=== PATIENT | female | born 1995 | race Caucasian/White ===

== ENCOUNTER 2020-07-10 19:05 | Emergency (ER) | payer OTHER ==
[~2020-07-10] VITALS: Ht 160 cm; Wt 85.9 kg
--- NOTE | 2020-07-10 19:39 | PHYS DOC ---
General Adult EDM: Chief Complaint: SKIN PROBLEM HPI: HPI: Patient is a 24 year old female who presents with a skin rash over her bilateral legs, arms, and back. She states that this began 2 weeks ago. She denies any inciting factors, as well as change in medications, lotions, body washes, detergents, or new clothing. She states that she has had a similar rash like this when she was 5 years ago. She also states she has a discoloration under her arms and breasts. She states that this rash started on her bilateral legs and showed up on her arms after she waxed them. which she has done many times in the past. She states the rash on her back is initiated by pressure from her bra. She has tried OTC cortisone and RX triamcinolone without relief. She denies fevers, chill, shortness of breath, GI upset, but states she is having some dysuria. Review of Systems: Review of Systems: Constitutional: Denies fever or chills. [] Eyes: Denies change in visual acuity. [] HENT: Denies nasal congestion or sore throat. [] Respiratory: Denies cough or shortness of breath. [] Cardiovascular: Denies chest pain or edema. [] GI: Denies abdominal pain, nausea, vomiting, bloody stools or diarrhea. [] : positive dysuria. [] Musculoskeletal: Denies back pain or joint pain. [] Integument: positive rash. [] Neurologic: Denies headache, focal weakness or sensory changes. [] Endocrine: Denies polyuria or polydipsia. [] Lymphatic: Denies swollen glands. [] Psychiatric: Denies depression or anxiety. [] Heart Score: Risk Factors: Risk Factors: DM, Current or recent (<one month) smoker, HTN, HLP, family history of CAD, obesity. Risk Scores: Score 0 - 3: 2.5% MACE over next 6 weeks - Discharge Home Score 4 - 6: 20.3% MACE over next 6 weeks - Admit for Clinical Observation Score 7 - 10: 72.7% MACE over next 6 weeks - Early Invasive Strategies Allergies: Allergies: Allergies Coded Allergies Type Severity Reaction Last Updated Verified No Known Drug Allergies 07/10/20 No Physical Exam: PE: Constitutional: Well developed, well nourished, no acute distress, non-toxic appearance. [] HENT: Normocephalic, atraumatic, bilateral external ears normal, oropharynx moist, no oral exudates, nose normal. [] Eyes: PERRLA, EOMI, conjunctiva normal, no discharge. [] Neck: Normal range of motion, no tenderness, supple, no stridor. [] Cardiovascular:Heart rate regular rhythm, no murmur [] Lungs & Thorax: Bilateral breath sounds clear to auscultation [] Abdomen: Bowel sounds normal, soft, no tenderness, no masses, no pulsatile masses. [] Skin: Warm, dry, no erythema, positive rash forearms, armpits and upper abdomen-- non raised Back: No tenderness, no CVA tenderness. [] Extremities: No tenderness, no cyanosis, no clubbing, ROM intact, no edema. [] Neurologic: Alert and oriented X 3, normal motor function, normal sensory function, no focal deficits noted. [] Psychologic: Affect normal, judgement normal, mood normal. [] Current Patient Data: Labs: Laboratory Tests Test 07/10/20 19:22 POC Urine HCG, Qualitative Hcg negative (Negative) EKG: EKG: [] Radiology/Procedures: Radiology/Procedures: [] Course & Med Decision Making: Course & Med Decision Making Pertinent Labs and Imaging studies reviewed. (See chart for details) [] Patient was evaluated for chief complaint. Based upon history of present illness and physical exam no emergent lab or radiologic imaging indicated. P michael was treated with Solu-Medrol discharged home with Medrol Dosepak and steroid cream. Patient will be referred to her primary care physician and or dermatology. David Disclaimer: David Disclaimer: This electronic medical record was generated, in whole or in part, using a voice recognition dictation system. Departure Departure Impression: Primary Impression: Rash and nonspecific skin eruption Additional Impression: Dysuria Condition: STABLE Referrals: PRISCILA SHELTON (PCP) Patient Instructions: Dysuria, Rash NE CEJA I DO Jul 10, 2020 19:39
[2020-07-10 19:57] LABS: BILIRUBIN,URINE NEGATIVE (NEG); CLARITY,URINE CLEAR; COLOR,URINE YELLOW; NITRITE,URINE NEGATIVE (NEG); PH,URINE 5.5 (<5.0-8.0); PROTEIN,URINE NEGATIVE (NEG-TRACE); UROBILINOGEN,URINE 0.2 mg/dL (0.2 mg/dL)
[2020-07-10] MEDS ORDERED: methylPREDNISolone SOD SUCC PF 125 MG/2 ML VIAL. IM ONE (20:00)
[2020-07-10] MEDS ORDERED: PRED20TA PO (20:00)
[2020-07-10 20:08] LABS: BACTERIA,URINE FEW /HPF (0-FEW); WBC,URINE RARE /HPF (0-4)
[2020-07-10] MEDS ORDERED: NITR100C62 PO (20:18)
[2020-07-10 20:21] VITALS: BP 146/82
== END 2020-07-10 20:30 | disposition home or self-care (01) ==
LOC: ER 19:05
DX: R21 Rash and other nonspecific skin eruption (principal); R30.0 Dysuria
CPT/HCPCS: 81001; 81025; 96372; 99283; J2930